=== PATIENT | female | born 1950 | race Caucasian/White ===

== ENCOUNTER 2016-10-10 10:25 | Emergency (ER) | payer OTHER ==
[~2016-10-10] VITALS: Ht 149.9 cm; Wt 70.3 kg
[2016-10-10 10:30] VITALS: BP 105/69
[2016-10-10] MEDS ORDERED: [UNRECOGNIZED DRUG - CODE] PO (10:39)
[2016-10-10] MEDS ORDERED: ATEN25TA7 PO (10:39)
[2016-10-10] MEDS ORDERED: TIZA4TAB11 PO (10:39)
[2016-10-10] MEDS ORDERED: ALBU0.0912 IH (10:39)
[2016-10-10] MEDS ORDERED: MORP30CE21 PO (10:39)
[2016-10-10] MEDS ORDERED: LYR75 PO (10:39)
[2016-10-10] MEDS ORDERED: VAS2.5 PO (10:39)
[2016-10-10] MEDS ORDERED: DIAZ5TAB7 PO (10:39)
[2016-10-10] MEDS ORDERED: ATOR10TA PO (10:39)
[2016-10-10] MEDS ORDERED: OMEP-48 PO (10:39)
--- NOTE | 2016-10-10 10:49 | NUR ---
Patient taken to XRAY via wheelchair per tech.
--- NOTE | 2016-10-10 10:57 | NUR ---
Patient back from XRAY via wheelchair per tech--to lobby.
--- NOTE | 2016-10-10 14:16 | NUR ---
Patient taken to bed 04 via wheelchair per tech.
--- NOTE | 2016-10-10 14:20 | NUR ---
65/F BIB DAUGHTER STS TWISTED R ANKLE GOING DOWN 3 STAIRS YESTERDAY. DENIES HITTING HEAD. HX ASTHMA, HTN, OSTEOPOROSIS, ARTHRITIS, "OVERACTING NERVES," HEP C, 2 BACK SURGERIES. DENIES N/V/D; SKIN IS PINK/WARM/DRY; AAOX4 WITH EVEN AND STEADY GAIT; LUNGS CLEAR BL; HR EVEN AND REGULAR; PT DENIES ANY FEVER, CP, SOB, OR COUGH AT THIS TIME; PATIENT STATES PAIN OF 7/10 AT THIS TIME; VSS; PATIENT POSITIONED FOR COMFORT; HOB ELEVATED; BEDRAILS UP X2; BED DOWN. ER MD MADE AWARE OF PT STATUS.
[2016-10-10] MEDS ORDERED: HYDROcodone/APAP 10/325 MG 1 TAB TAB PO STA (15:45)
--- NOTE | 2016-10-10 15:57 | NUR ---
XRAY AT BEDSIDE FOR RIGHT FOOT BY GUICHO PURDY
--- NOTE | 2016-10-10 16:20 | NUR ---
PT ASSISTED TO THE BATHROOM VIA WHEEL CHAIR PER PT REQUEST, WHEEL CHAIR ASSISTED BACK TO BED AND PLACED ON MONITOR
[2016-10-10 16:27] VITALS: BP 104/71
--- NOTE | 2016-10-10 16:30 | NUR ---
DR NORRIS AT BEDSIDE UPDATING THE PT WITH HER CONDITION, DAUGHTER AT BEDSIDE
--- NOTE | 2016-10-10 16:45 | NUR ---
AFTER TALKING WITH DR NORRIS, PT REQUESTED TO WAIT AT THE LOBBY FOR D/C, PT WHEEL CHAIR ASSITED TO THE LOBBY
--- NOTE | 2016-10-10 17:11 | NUR ---
PT LEFT WITH DAUGHTER WITHOUT SIGNING DISHCARGE PAPERS, DR NORRIS NOTIFIED, PT WAS INSTRUCTED EARLIER BY DR NORRIS TO FOLLOW UP WITH CYBER THREAT ANALYST
== END 2016-10-10 17:11 | disposition home or self-care (01) ==
LOC: MED 10:25
DX: S92.214A Nondisplaced fracture of cuboid bone of right foot, initial encounter for closed fracture (principal); J45.909 Unspecified asthma, uncomplicated; I10 Essential (primary) hypertension; M81.0 Age-related osteoporosis without current pathological fracture; M19.90 Unspecified osteoarthritis, unspecified site; X50.1XXA Overexertion from prolonged static or awkward postures, initial encounter; Y93.89 Activity, other specified; Y92.89 Other specified places as the place of occurrence of the external cause; Y99.8 Other external cause status
CPT/HCPCS: 73610; 73630; 99284; Q0092

== ENCOUNTER 2020-06-05 08:26 | Emergency (ER) | payer OTHER ==
[~2020-06-05] VITALS: Ht 152.4 cm; Wt 73.5 kg
[~2020-06-05 08:26] MED LIST: ALBU0.0912 IH; ATEN25TA7 PO; ATOR10TA PO; DIAZ5TAB7 PO; LYR75 PO; MORP30CE21 PO; OMEP-48 PO; TIZA4TAB11 PO; VAS2.5 PO; [UNRECOGNIZED DRUG - CODE] PO
[2020-06-05 08:33] VITALS: BP 157/98
--- NOTE | 2020-06-05 08:40 | NUR ---
Patient ambulated to bed 3. RN evaluating the patient at bedside.
--- NOTE | 2020-06-05 08:50 | NUR ---
Dr. Silva is evaluating the patient at bedside.
--- NOTE | 2020-06-05 08:54 | NUR ---
RECTAL TEMP [address] COWART MADE AWARE.
--- NOTE | 2020-06-05 08:58 | NUR ---
69 YO F BIB DAUGHTER FOR C/C OF ALOC. PER DAUGHTER PT BECAME CONFUSED 3 DAYS AGO, NOT KEEPING UP WITH ADL'S. DENIES PAIN AT THIS TIME, DENIES FEVER N/V. PER DAUGHTER PT HAD A C/C OF ABD PAIN YESTERDAY. UPON ASSESSMENT, A&O X3, PT STATED IT WAS 2000. VSS. HEART RATE NORMAL, REGULAR RHYTHM. CLEAR BREATH SOUNDS IN ALL LUNG LEAVITT. ABDOMEN SOFT AND NON-TENDER. PT AMBULATORY. CHANGED TO PT GOWN. POSITIONED COMFORTABLY WITH BED IN LOWEST POSITION AND 2 SIDERAILS UP. ERMD MADE AWARE OF PT STATUS. MED HX: CIRROHSIS, HTN, SEPSIS 2019 NKA
--- NOTE | 2020-06-05 09:21 | NUR ---
JYOTI SWAB DONE. HANDED TO GENEVA ENNIS.
--- NOTE | 2020-06-05 09:47 | NUR ---
Patient taken to CT scan via wheelchair by tech.
[2020-06-05] MEDS ORDERED: DULO60EC PO (09:48)
[2020-06-05] MEDS ORDERED: ALBU-118 IH (09:48)
[2020-06-05] MEDS ORDERED: ATOR20TA PO (09:48)
[2020-06-05] MEDS ORDERED: HYDR-5191 PO (09:48)
[2020-06-05] MEDS ORDERED: [UNRECOGNIZED DRUG - CODE] SUBQ (09:48)
--- NOTE | 2020-06-05 09:50 | NUR ---
MEDICATION RECONCILATION UPDATED PER MED LIST. DAUGHTER REPORTS SHE TAKES EACH MEDICATION ONCE A DAY UP TO HER KNOWLEDGE.
--- NOTE | 2020-06-05 09:54 | NUR ---
[facility]--[phone]
[2020-06-05 09:55] LABS: BASOPHILS # (AUTO) 0.1 K/uL (0.00-0.22); BASOPHILS % (AUTO) 0.8 % (0.0-2.0); EOSINOPHILS % (AUTO) 0.4 % (0.0-4.0); HEMATOCRIT 41.4 % (36-48); HEMOGLOBIN 13.9 g/dL (12.0-16.0); LYMPHOCYTES # (AUTO) 2.5 K/uL (2.5-16.5); MEAN CORPUSCULAR HEMOGLOBIN 31 pg (27-31); MEAN CORPUSCULAR HGB CONC 34 g/dL (33-37); MEAN CORPUSCULAR VOLUME 91.8 fL (80-94); MONOCYTES # (AUTO) 0.6 K/uL (0.8-1.0); MONOCYTES % (AUTO) 8.5 % (1.7-9.3); NEUTROPHILS # (AUTO) 4.3 K/uL (1.8-7.7); NEUTROPHILS % (AUTO) 57.3 % (42.2-75.2); PLATELET COUNT (AUTO) 203 K/uL (140-450); RED BLOOD CELL COUNT(AUTO) 4.51 MIL/uL (4.20-5.40); RED CELL DISTRIBUTION WIDTH 14.3 % (11.6-13.7); WHITE BLOOD COUNT (AUTO) 7.5 K/uL (4.8-10.8)
[2020-06-05 10:05] LABS: PROTHROMBIN TIME 10.8 secs (10.8-13.4)
[2020-06-05 10:21] LABS: ALBUMIN 3.8 g/dL (3.4-5.0); ANION GAP 16.5 (8-16); CARBON DIOXIDE 24.7 mmol/L (21-32); CREATININE 0.8 mg/dL (0.6-1.3); POTASSIUM 3.2 mmol/L (3.5-5.1); TOTAL BILIRUBIN 1.3 mg/dL (0.0-1.0)
--- NOTE | 2020-06-05 10:24 | NUR ---
PT BACK FROM CT
--- NOTE | 2020-06-05 12:17 | NUR ---
Pt sitting on bedpan. Still unable to provide urine at this time.
--- NOTE | 2020-06-05 13:31 | NUR ---
DAUGHTER CAME TO NURSE'S STATION AND STATED THAT MOTHER AGREED TO HAVE URINARY CATHETER INSERTED TO OBTAIN UA.
--- NOTE | 2020-06-05 13:41 | NUR ---
INSERTED STRAIGHT CATHETER FR 15, DRAINED 200 CC CLEAR YELLOW URINE. PT TOLERATED PROCEDURE WELL.
[2020-06-05 13:56] LABS: APPEARANCE,URINE HAZY (CLEAR); BILIRUBIN,URINE NEGATIVE (NEGATIVE); BLOOD, URINE NEGATIVE (NEGATIVE); COLOR,URINE YELLOW (YELLOW); LEUKOCYTE ESTERASE ,URINE NEGATIVE (NEGATIVE); NITRITE, URINE NEGATIVE (NEGATIVE); UGLUCOSE NEGATIVE (NEGATIVE)
--- NOTE | 2020-06-05 13:58 | NUR ---
Dr. Silva is reevaluating the patient at bedside.
[2020-06-05 16:30] VITALS: BP 141/100
--- NOTE | 2020-06-05 16:31 | NUR ---
Patient discharged with v/s stable. Written and verbal after care instructions given and explained. Patient verbalized understanding. Ambulatory with steady gait. All questions addressed prior to discharge. Advised to follow up with PMD.
== END 2020-06-05 16:31 | disposition home or self-care (01) ==
LOC: MED 08:26
DX: E86.0 Dehydration (principal); R41.82 Altered mental status, unspecified; J45.909 Unspecified asthma, uncomplicated; I10 Essential (primary) hypertension; Z79.899 Other long term (current) drug therapy; Z20.822 Contact with and (suspected) exposure to COVID-19
CPT/HCPCS: 36415; 36600; 70450; 71045; 80053; 81003; 82140; 82550; 82553; 82803; 83605; 83880; 84484; 85025; 85610; 85730; 87040; 87086; 93005; 99285

== ENCOUNTER 2020-10-01 10:02 | Emergency (ER) | payer OTHER ==
[~2020-10-01] VITALS: Ht 154.9 cm; Wt 68.0 kg
[~2020-10-01 10:02] MED LIST changes: +ALBU-118 IH; -ALBU0.0912 IH; -ATEN25TA7 PO; -ATOR10TA PO; +ATOR20TA PO; -DIAZ5TAB7 PO; +DULO60EC PO; +HYDR-5191 PO; -MORP30CE21 PO; -[UNRECOGNIZED DRUG - CODE] PO; +[UNRECOGNIZED DRUG - CODE] SUBQ
[2020-10-01 10:06] VITALS: BP 159/90
[2020-10-01] MEDS ORDERED: NACL 0.9% 1,000 ML IV ONE (10:20)
[2020-10-01] MEDS ORDERED: ACETAMINOPHEN EXTRA STRENGTH 500 MG TAB PO ONE (10:30)
[2020-10-01 12:27] LABS: BASOPHILS % (AUTO) 0.6 % (0.0-2.0); EOSINOPHILS % (AUTO) 0.5 % (0.0-4.0); HEMATOCRIT 36.2 % (36-48); HEMOGLOBIN 12.2 g/dL (12.0-16.0); LYMPHOCYTES % (AUTO) 27.4 % (20.5-51.1); MEAN CORPUSCULAR HEMOGLOBIN 31 pg (27-31); MEAN CORPUSCULAR HGB CONC 34 g/dL (33-37); MEAN CORPUSCULAR VOLUME 91.4 fL (80-94); MONOCYTES # (AUTO) 0.8 K/uL (0.8-1.0); MONOCYTES % (AUTO) 11.4 % (1.7-9.3); NEUTROPHILS # (AUTO) 4.4 K/uL (1.8-7.7); NEUTROPHILS % (AUTO) 60.1 % (42.2-75.2); PLATELET COUNT (AUTO) 211 K/uL (140-450); RED BLOOD CELL COUNT(AUTO) 3.96 MIL/uL (4.20-5.40); RED CELL DISTRIBUTION WIDTH 14.5 % (11.6-13.7); WHITE BLOOD COUNT (AUTO) 7.3 K/uL (4.8-10.8)
[2020-10-01 12:38] LABS: ALBUMIN 3.5 g/dL (3.4-5.0); ANION GAP 13.5 (8-16); CARBON DIOXIDE 27.6 mmol/L (21-32); CREATININE 0.7 mg/dL (0.6-1.3); POTASSIUM 3.1 mmol/L (3.5-5.1); TOTAL BILIRUBIN 1.1 mg/dL (0.0-1.0)
[2020-10-01 12:48] LABS: FREE T4 (FREE THYROXINE) 0.83 ng/dL (0.76-1.46); THYROID STIMULATING HORMONE 1.27 uIU/mL (0.34-3.74)
[2020-10-01 12:59] LABS: APPEARANCE,URINE CLEAR (CLEAR); BILIRUBIN,URINE NEGATIVE (NEGATIVE); BLOOD, URINE NEGATIVE (NEGATIVE); COLOR,URINE YELLOW (YELLOW); LEUKOCYTE ESTERASE ,URINE NEGATIVE (NEGATIVE); NITRITE, URINE NEGATIVE (NEGATIVE); UGLUCOSE NEGATIVE (NEGATIVE)
[2020-10-01] MEDS ORDERED: POTASSIUM CHLORIDE 10 MEQ TABER PO ONE ×2 (13:40→13:43)
[2020-10-01 13:59] VITALS: BP 190/72
== END 2020-10-01 14:00 | disposition home or self-care (01) ==
LOC: MED 10:02
DX: R00.0 Tachycardia, unspecified (principal); Z20.822 Contact with and (suspected) exposure to COVID-19; R51.9 Headache, unspecified
CPT/HCPCS: 36415; 71045; 80053; 81003; 83605; 84439; 84443; 84484; 85025; 87040; 87086; 93005; 96360; 99285

== ENCOUNTER 2022-08-23 15:04 | Emergency (ER) | payer OTHER ==
[~2022-08-23] VITALS: Ht 152.4 cm; Wt 73.3 kg
[~2022-08-23 15:04] MED LIST changes: -DULO60EC PO; +DULO60EC1 PO
[2022-08-23 15:31] VITALS: BP 119/80
--- NOTE | 2022-08-23 17:19 | NUR ---
TO BED 10 WITH NO ACUTE DISTRESS
[2022-08-23] MEDS ORDERED: ACETAMINOPHEN EXTRA STRENGTH 500 MG TAB PO ONE (17:45)
[2022-08-23] MEDS ORDERED: ACET-10509 PO (17:48)
[2022-08-23 18:05] VITALS: BP 122/78
--- NOTE | 2022-08-23 18:05 | NUR ---
Patient discharged with v/s stable. Written and verbal after care instructions given and explained. Patient verbalized understanding. Ambulatory with steady gait. All questions addressed prior to discharge. Advised to follow up with PMD. PT. STABLE FOR D/C. AMB. WITH STEADY GAIT. DENIES PAIN MEDS NOW. PT. STATED "I HAVE MEDICATION AT HOME."
== END 2022-08-23 18:05 | disposition home or self-care (01) ==
LOC: MED 15:04
DX: M25.569 Pain in unspecified knee (principal); H53.9 Unspecified visual disturbance; J45.909 Unspecified asthma, uncomplicated; F03.90 Unspecified dementia, unspecified severity, without behavioral disturbance, psychotic disturbance, mood disturbance, and anxiety; I10 Essential (primary) hypertension; Z79.899 Other long term (current) drug therapy
CPT/HCPCS: 99282; 99284

== ENCOUNTER 2023-09-30 20:01 | Emergency (ER) | payer OTHER ==
[~2023-09-30] VITALS: Ht 154.9 cm; Wt 63.5 kg
[~2023-09-30 20:01] MED LIST changes: +ACET-10509 PO; +HYDR-5071 PO; -HYDR-5191 PO
[2023-09-30 20:10] VITALS: BP 150/89; PULSE 88; RESP 18; TEMP 98; O2SAT 100
[2023-09-30] MEDS ORDERED: ACET-10509 PO (21:11)
[2023-09-30] MEDS ORDERED: BACI-418 TP (21:11)
[2023-09-30] MEDS ORDERED: AMOX1TAB8 PO (21:11)
[2023-09-30] MEDS ORDERED: ACETAMINOPHEN EXTRA STRENGTH 500 MG TAB ONE (21:18)
[2023-09-30] MEDS: ACETAMINOPHEN EXTRA STRENGTH 500 MG TAB PO ONE (21:27)
== END 2023-09-30 21:28 | disposition home or self-care (01) ==
LOC: MED 20:01
DX: S51.832A Puncture wound without foreign body of left forearm, initial encounter (principal); J45.909 Unspecified asthma, uncomplicated; F03.90 Unspecified dementia, unspecified severity, without behavioral disturbance, psychotic disturbance, mood disturbance, and anxiety; I10 Essential (primary) hypertension; Z79.899 Other long term (current) drug therapy; W55.01XA Bitten by cat, initial encounter; Y93.89 Activity, other specified; Y92.89 Other specified places as the place of occurrence of the external cause; Y99.8 Other external cause status
CPT/HCPCS: 99283